=== PATIENT | female | born 1940 | race Two or more races ===

== ENCOUNTER 2019-05-19 12:12 | Outpatient (CLI) | payer OTHER ==
[~2019-05-19 12:12] MED LIST: ATORVASTATIN CA80 MG; CATAFLAM50 MG PO; CEPHALEXIN500 MG; FOLIC ACID1 MG; METFORMIN HYDRO25 GM; NEURONTIN300 MG; ORPH100T PO; SERTRALINE HCL100 MG; SYNTHROID50 MCG; TRAMADOL HCL50 MG; ZANTAC300 MG; ZESTRIL2.5 MG
== END 2019-05-19 12:24 | disposition home or self-care (01) ==
LOC: LAB 12:12
DX: E78.49 Other hyperlipidemia (principal); E34.8 Other specified endocrine disorders; E23.6 Other disorders of pituitary gland; R19.00 Intra-abdominal and pelvic swelling, mass and lump, unspecified site; N39.0 Urinary tract infection, site not specified; E55.9 Vitamin D deficiency, unspecified; N73.8 Other specified female pelvic inflammatory diseases; A60.04 Herpesviral vulvovaginitis; N95.8 Other specified menopausal and perimenopausal disorders; N91.0 Primary amenorrhea

== ENCOUNTER 2019-05-25 07:42 | Outpatient (CLI) | payer OTHER | END 2019-05-25 07:49 | disposition home or self-care (01) | LOC: MAMO-SONO 07:42 | DX: Z12.31 Encounter for screening mammogram for malignant neoplasm of breast (principal); Z87.898 Personal history of other specified conditions; N63.10 Unspecified lump in the right breast, unspecified quadrant; N63.20 Unspecified lump in the left breast, unspecified quadrant ==

== ENCOUNTER 2020-05-29 10:26 | Emergency (ER) | payer OTHER ==
[~2020-05-29] VITALS: Ht 149.9 cm; Wt 53.1 kg
[2020-05-29] MEDS ORDERED: AMLODIPINE-OLM1 EAC2 (10:48)
[2020-05-29] MEDS ORDERED: SIMVASTATIN5 MG (10:48)
[2020-05-29] MEDS ORDERED: MELOXICAM15 MG (10:48)
== END 2020-05-29 14:09 | disposition home or self-care (01) ==
LOC: ER 10:26
DX: M54.5 Low back pain (principal)

== ENCOUNTER 2020-07-24 10:38 | Outpatient (CLI) | payer OTHER ==
[~2020-07-24 10:38] MED LIST changes: +AMLODIPINE-OLM1 EAC2; +MELOXICAM15 MG; +SIMVASTATIN5 MG
== END 2020-07-24 10:43 | disposition home or self-care (01) ==
LOC: LAB 10:38
PROVIDERS: ATTEND Internal Medicine Rheumatology
DX: E55.9 Vitamin D deficiency, unspecified (principal); M81.0 Age-related osteoporosis without current pathological fracture

== ENCOUNTER → 2020-12-04 | Outpatient (CLI) | payer OTHER | END | disposition home or self-care (01) | LOC: LAB 08:45 | PROVIDERS: ATTEND General Practice | DX: I10 Essential (primary) hypertension (principal); D64.89 Other specified anemias; E78.89 Other lipoprotein metabolism disorders; E11.9 Type 2 diabetes mellitus without complications; E03.8 Other specified hypothyroidism; N39.0 Urinary tract infection, site not specified; Z12.11 Encounter for screening for malignant neoplasm of colon ==

== ENCOUNTER 2021-05-22 09:43 | Outpatient (CLI) | payer OTHER | END 2021-05-22 10:00 | disposition home or self-care (01) | LOC: RAD 09:43 | PROVIDERS: ATTEND Internal Medicine Rheumatology | DX: M17.0 Bilateral primary osteoarthritis of knee (principal) ==

== ENCOUNTER 2022-08-22 12:16 | Outpatient (CLI) | payer OTHER ==
[~2022-08-22 12:16] MED LIST changes: +LOSARTAN POTASS25 MG PO
== END 2022-08-22 12:20 | disposition home or self-care (01) ==
LOC: NUCLEAR 12:16
PROVIDERS: ATTEND General Practice
DX: M81.0 Age-related osteoporosis without current pathological fracture (principal)

== ENCOUNTER 2024-04-20 10:01 | Outpatient (CLI) | payer OTHER ==
[2024-04-20 10:50] LABS: URINE APPEARANCE Clear; URINE BILIRRUBIN Negative (NEGATIVE); URINE BLOOD Negative; URINE COLOR Yellow; URINE GLUCOSE Negative (NEGATIVE); URINE KETONE Negative (NEGATIVE); URINE LEUKOCYTE Trace; URINE NITRATE Negative; URINE PROTEIN Negative (NEGATIVE); URINE UROBILINOGEN 0.2 E.U./dl
[2024-04-20 10:51] LABS: URINE BACTERIA 61.7 uL (0.0-1933); URINE CAST 0.15 uL (0.0-1.40); URINE EPITHELIAL CELLS 4.3 uL (0.0-38.8); URINE RBC 2.5 uL (0.0-20.8); URINE WBC 2.9 uL (0.0-23.2)
[2024-04-20 11:05] LABS: HEMATOCRIT 42.1 % (36.0-45.00); MEAN CELL VOLUME 84.8 fL (80.00-100.00); MEAN CORPUSCULAR HEMOGLOBIN 28.2 pg (27.00-32.0); MEAN CORPUSCULAR HGB CONC 33.2 g/dl (32.0-36.0); PLATELET COUNT 186 K/uL (150-450); RED BLOOD COUNT 4.96 M/uL (4.00-6.00); RED CELL DISTRIBUTION WIDTH 13.7 % (11.5-14.5)
[2024-04-20 11:37] LABS: ALBUMIN 3.8 gm/dL (3.4-5.0); BILIRUBIN TOTAL 0.73 mg/dL (0.3-1.2); CALCIUM 9.3 mg/dL (8.5-10.1); CHOL HDL RATIO 2.4 (0-5.0); CREATININE SERUM 0.81 mg/dL (0.55-1.02); GFR 67.86; GLOBULINA 2.8 G/DL (2.4-3.5); POTASSIUM 4.47 mEq/L (3.5-5.1); TOTAL PROTEIN 6.6 gm/dL (6.4-8.2); TSH 1.47 uIU/mL (0.358-3.74)
== END 2024-04-20 10:06 | disposition home or self-care (01) ==
LOC: LAB 10:01
PROVIDERS: ATTEND General Practice
DX: D64.9 Anemia, unspecified (principal); I10 Essential (primary) hypertension; E78.9 Disorder of lipoprotein metabolism, unspecified; E11.9 Type 2 diabetes mellitus without complications; E03.8 Other specified hypothyroidism; N39.0 Urinary tract infection, site not specified; Z12.11 Encounter for screening for malignant neoplasm of colon; N25.81 Secondary hyperparathyroidism of renal origin; N18.9 Chronic kidney disease, unspecified

== ENCOUNTER 2024-12-02 12:13 | Emergency (ER) | payer OTHER ==
[~2024-12-02] VITALS: Ht 152.4 cm; Wt 56.7 kg
[2024-12-02] MEDS ORDERED: DEXAMETHASONE SODIUM PHOSPHATE 4 MG/ML VIAL IM STA (13:24)
[2024-12-02] MEDS ORDERED: KETOROLAC TROMETHAMINE 30 MG VIAL ONE (13:25)
[2024-12-02] MEDS ORDERED: ORPHENADRINE CITRATE 30 MG/ML AMPUL IM STA (13:25)
[2024-12-02] MEDS ORDERED: KETOROLAC TROMETHAMINE 30 MG VIAL IM STA (13:25)
[2024-12-02] MEDS ORDERED: ORPHENADRINE CITRATE 30 MG/ML AMPUL ONE (13:25)
[2024-12-02] MEDS ORDERED: DEXAMETHASONE SODIUM PHOSPHATE 4 MG/ML VIAL ONE (13:25)
[2024-12-02 13:53] LABS: BASO % 0.5 % (0.1-1.2); EOS # 0.21 (0.04-0.54); EOS % 2.9 % (0.7-7.0); HEMATOCRIT 42.2 % (34.1-44.9); HEMOGLOBIN 13.4 g/dL (11.2-15.7); LYMPH # 1.53 (1.18-3.74); LYMPH % 20.8 % (19.3-53.1); MEAN CORPUSCULAR HEMOGLOBIN 26.9 pg (25.6-32.2); MONO # 0.54 (0.24-0.82); MONO % 7.3 % (4.7-12.5); NEUT # 5.02 (1.56-6.13); NEUT % 68.4 % (34.0-71.1); PLATELET COUNT 213 K/uL (163-369); RED BLOOD COUNT 4.98 M/uL (3.93-5.22); RED CELL DISTRIBUTION WIDTH 13.3 % (11.6-14.4)
[2024-12-02 14:33] LABS: CREATININE SERUM 0.8 mg/dL (0.55-1.02); GFR 68.67; POTASSIUM 4.08 mEq/L (3.5-5.1)
[2024-12-02 14:41] LABS: URINE APPEARANCE Clear; URINE BILIRRUBIN Negative (NEGATIVE); URINE BLOOD Negative; URINE COLOR Dark Yellow; URINE GLUCOSE Negative (NEGATIVE); URINE KETONE Trace (NEGATIVE); URINE LEUKOCYTE Trace; URINE NITRATE Negative; URINE PROTEIN Negative (NEGATIVE)
[2024-12-02 14:44] LABS: URINE BACTERIA 23.2 uL (0.0-1933); URINE EPITHELIAL CELLS 5.2 uL (0.0-38.8); URINE RBC 7.5 uL (0.0-20.8)
[2024-12-02 15:10] LABS: URINE CAST 0.44 uL (0.0-1.40); URINE CRYSTALS MODERATE /HPF
[2024-12-02 15:11] LABS: URINE MUCUS SCANT
[2024-12-02] MEDS ORDERED: ATARAX25 MG PO (15:38)
[2024-12-02] MEDS ORDERED: PERMETHRIN60 GM TOP (15:38)
[2024-12-02] MEDS ORDERED: DICLOFENAC POTA50 MG PO (15:38)
[2024-12-02] MEDS ORDERED: ACETAMINOPHEN500 M2 PO (15:38)
== END 2024-12-02 16:04 | disposition home or self-care (01) ==
LOC: ER 12:13
PROVIDERS: General Practice
DX: M54.2 Cervicalgia (principal); B86 Scabies; M54.50 Low back pain, unspecified; I10 Essential (primary) hypertension; E03.8 Other specified hypothyroidism; E11.9 Type 2 diabetes mellitus without complications; Z79.84 Long term (current) use of oral hypoglycemic drugs; Z88.8 Allergy status to other drugs, medicaments and biological substances
CPT/HCPCS: 36415; 72040; 72100; 96372; 99283; J1100; J1885; J2360